=== PATIENT | male | born 1940 | race Caucasian/White ===

== ENCOUNTER 2018-05-07 20:28 | Observation (INO) | payer OTHER ==
[~2018-05-07] VITALS: Ht 175.3 cm; Wt 75.0 kg
[~2018-05-07 20:28] MED LIST: ALTOPREV40 MG PO; ASPIRIN325 MG PO; ATROVENT HFA17 MCG IN; BRIMONIDINE0.2 % OP; CITALOPRAM40 MG PO; CLOPIDOGREL75 MG PO; METOCLOPRAMIDE H5 MG PO; NITRO-DUR0.6 MG/HR TD; PRILOSEC20 MG PO; REMERON SOLTAB15 MG PO; TYLENOL 325MG SUP RE; VITAMIN A & D EX; XALATAN0.005 % OP
[2018-05-07 21:01] LABS: HEMATOCRIT 46.3 % (39.0-50.0); HEMOGLOBIN 15.6 g/dl (14.0-18.0); IMMATURE GRANULOCYTES 1.6 % (0.0-5.0); MEAN CELL VOLUME 96.5 fL CALC (80.0-100.0); MEAN CORPUSCULAR HGB 32.5 pG CALC (26.0-32.0); MEAN CORPUSCULAR HGB CONC 33.7 g/L CALC (32.0-36.0); NEUT# 11.05 thou/uL (1.82-7.42); RED BLOOD COUNT 4.8 mill/uL (4.70-6.10); RED CELL DISTRI WIDTH 14.6 % (11.5-15.5)
[2018-05-07] MEDS ORDERED: IPRATROPIU0.5 MG/3 M IN (21:01)
[2018-05-07] MEDS ORDERED: ZANTAC 150 PO (21:02)
[2018-05-07] MEDS ORDERED: METOPROL TAR25 MG PO ×2 (21:04)
[2018-05-07] MEDS ORDERED: THEOPHYLLINE S300 MG PO (21:06)
[2018-05-07] MEDS ORDERED: LEVOTHYROXIN50 MCG PO (21:07)
[2018-05-07] MEDS ORDERED: SPIRIVA HANDIHALER IN (21:08)
[2018-05-07] MEDS ORDERED: SYMBICORT1 AE1 IN (21:09)
[2018-05-07] MEDS ORDERED: FERROUS SULF324 M1 PO (21:10)
[2018-05-07 21:15] LABS: ALBUMIN 3.8 g/dL (3.2-5.0); ALKALINE PHOSPHATASE 53 u/l (38-126); ANION GAP 11 (6-22 (CALC)); BILIRUBIN, TOTAL 0.4 mg/dL (0.0-1.4); BUN 27 mg/dL (8-23); BUN/CREATININE RATIO 26 (12-20 (CALC)); CARBON DIOXIDE 29 mmol/l (22-30); CHLORIDE 105 mmol/l (95-108); CREATININE 1.1 mg/dL (0.7-1.3); GFR > 60 ML/MIN (>=60 (CALC)); GFR FOR AFR.AMER. > 60 ML/MIN (>=60 (CALC)); POTASSIUM 4.6 mmol/l (3.5-5.1); SGOT/AST 29 u/l (19-48); SODIUM 140 mmol/l (137-146); TOTAL PROTEIN 7.1 g/dL (6.3-8.2)
[2018-05-07 21:26] LABS: MYOGLOBIN 91 ng/mL (0 - 121)
[2018-05-07 21:29] LABS: PROTHROMBIN TIME 10.4 SECONDS (9.0-12.5)
[2018-05-07 23:10] VITALS: BP 131/63
[2018-05-08] VITALS (7 sets, daily range): BP systolic 100–135; BP diastolic 61–89
[2018-05-08 17:44] LABS: URINE BILIRUBIN - DIPSTICK NEGATIVE (NEGATIVE); URINE BLOOD DIPSTICK NEGATIVE (NEGATIVE); URINE CLARITY CLEAR; URINE COLOR YELLOW; URINE GLUCOSE - DIPSTICK 100 mg/dL (NEGATIVE); URINE KETONE NEGATIVE (NEGATIVE); URINE LEUK ESTERASE NEGATIVE (NEGATIVE); URINE NITRITE - DIPSTICK NEGATIVE (Negative); URINE PH 6.5 (4.5-8.0); URINE PROTEIN - DIPSTICK NEGATIVE (NEG-TRACE); URINE UROBILINOGEN - DIPSTICK 0.2 E.U./dL (0.2)
[2018-05-09] VITALS (11 sets, daily range): BP systolic 93–116; BP diastolic 49–73
[2018-05-09 05:30] LABS: IMMATURE GRANULOCYTES 0.8 % (0.0-5.0); MEAN CELL VOLUME 98.8 fL CALC (80.0-100.0); MEAN CORPUSCULAR HGB 32.6 pG CALC (26.0-32.0); NEUT# 9.86 thou/uL (1.82-7.42); RED BLOOD COUNT 4.02 mill/uL (4.70-6.10); RED CELL DISTRI WIDTH 14.9 % (11.5-15.5)
[2018-05-09 05:39] LABS: HEMATOCRIT 39.7 % (39.0-50.0); HEMOGLOBIN 13.1 g/dl (14.0-18.0)
[2018-05-09 05:51] LABS: ALKALINE PHOSPHATASE 44 u/l (38-126); ANION GAP 9 (6-22 (CALC)); BILIRUBIN, TOTAL 0.3 mg/dL (0.0-1.4); BUN 20 mg/dL (8-23); BUN/CREATININE RATIO 19 (12-20 (CALC)); CARBON DIOXIDE 27 mmol/l (22-30); CHLORIDE 109 mmol/l (95-108); CREATININE 1.1 mg/dL (0.7-1.3); GFR > 60 ML/MIN (>=60 (CALC)); GFR FOR AFR.AMER. > 60 ML/MIN (>=60 (CALC)); MAGNESIUM 2.1 mg/dL (1.6-2.3); POTASSIUM 3.9 mmol/l (3.5-5.1); SGOT/AST 30 u/l (19-48); SODIUM 141 mmol/l (137-146)
[2018-05-09 05:53] LABS: ALBUMIN 2.8 g/dL (3.2-5.0); TOTAL PROTEIN 5.3 g/dL (6.3-8.2)
== END 2018-05-09 21:40 | DRG 190 ==
LOC: ED 20:28 → ED-I 21:46 → ED 22:04 → MS2 22:05 → ICU 05-09 06:27
PROVIDERS: Emergency Medicine; Internal Medicine Nephrology; ADMIT Internal Medicine; ATTEND Internal Medicine
DX: J44.1 Chronic obstructive pulmonary disease with (acute) exacerbation (principal); J96.22 Acute and chronic respiratory failure with hypercapnia; J96.21 Acute and chronic respiratory failure with hypoxia; J18.9 Pneumonia, unspecified organism; J44.0 Chronic obstructive pulmonary disease with (acute) lower respiratory infection; I11.0 Hypertensive heart disease with heart failure; I50.22 Chronic systolic (congestive) heart failure; I25.118 Atherosclerotic heart disease of native coronary artery with other forms of angina pectoris; I25.82 Chronic total occlusion of coronary artery; I48.92 Unspecified atrial flutter; K21.9 Gastro-esophageal reflux disease without esophagitis; E03.9 Hypothyroidism, unspecified; E78.5 Hyperlipidemia, unspecified; F32.9 Major depressive disorder, single episode, unspecified; I48.0 Paroxysmal atrial fibrillation; D63.8 Anemia in other chronic diseases classified elsewhere; R91.8 Other nonspecific abnormal finding of lung field; I25.2 Old myocardial infarction; Z99.81 Dependence on supplemental oxygen; Z95.5 Presence of coronary angioplasty implant and graft; Z87.891 Personal history of nicotine dependence
CPT/HCPCS: G0378; J0282; J1650; J3370